=== PATIENT | male | born 1955 | race African-American/Black ===

== ENCOUNTER 2024-08-01 14:21 | Emergency (ER) | payer OTHER ==
[2024-08-01] MEDS ORDERED: HYDROCODONE/APAP 5/325 MG TAB ONE (15:58)
--- NOTE | 2024-08-01 17:24 | RAD REPORT ---
EXAMINATION: XR LEFT KNEE CLINICAL INDICATION: fall;Pain TECHNIQUE: Multiple projections of the left knee were obtained. COMPARISON: No prior exam. FINDINGS: Significant lateral joint compartment space narrowing is seen. There is a large amount of s oft tissue swelling anterior to the patella. A small suprapatellar joint effusion is present. No acute fracture evident.
--- NOTE | 2024-08-01 17:37 | ER ---
Nurse's Notes [facility] Name: Navdeep Voss Age: 68 yrs Sex: Male : 1955 Arrival Date: 08/01/2024 Time: 14:21 Bed 9 Private MD: Diagnosis: Fall on same level, unspecified;Effusion, left knee;Elevated blood-pressure reading, without diagnosis of hypertension Presentation: 08/01 15:13 Chief complaint: Patient states: left knee pain and swelling s/p fall 10 days ago. iw Coronavirus screen: At this time, the client does not indicate any symptoms associated with coronavirus-19. Ebola Screen: No symptoms or risks identified at this time. Risk Assessment: Do you want to hurt yourself or someone else? Patient reports no desire to harm self or others. 15:13 Method Of Arrival: Wheelchair iw 15:13 Initial Sepsis Screen: Does the patient meet any 2 criteria? No. Patient's initial iw sepsis screen is negative. Does the patient have a suspected source of infection? No. Patient's initial sepsis screen is negative. 15:13 Onset of symptoms was July 22, 2024. iw 15:13 Acuity: CHANI 4 iw Historical: - Allergies: 15:14 No Known Allergies; iw - Home Meds: 15:14 None [Active]; iw - PMHx: 15:14 None; iw - PSHx: 15:14 None; iw - Immunization history:: Adult Immunizations not up to date. - Infectious Disease History:: Denies. - Social history:: Smoking status: Patient denies any tobacco usage or history of. Screenin:[address] [facility] ED Fall Risk Assessment (Adult) History of falling in the last 3 months, jb4 including since admission No falls in past 3 months (0 pts) Confusion or Disorientation No (0 pts) Intoxicated or Sedated No (0 pts) Impaired Gait No (0 pts) Mobility Assist Device Used No (0 pt) Altered Elimination No (0 pt) Score/Fall Risk Level 0 - 2 = Low Risk Oriented to surroundings, Maintained a safe environment. Abuse screen: Denies threats or abuse. Nutritional screening: No deficits noted. Tuberculosis screening: No symptoms or risk factors identified. Assessment: 16:10 General: Appears in no apparent distress. comfortable, Behavior is calm, cooperative, jb4 appropriate for age. Pain: Complains of pain in left knee. Neuro: Level of Consciousness is awake, alert, obeys commands, Oriented to person, place, time, situation. Cardiovascular: Patient's skin is warm and dry. Respiratory: Airway is patent Respiratory effort is even, unlabored, Respiratory pattern is regular, symmetrical. Derm: Skin is intact, Skin is pink, warm \T\ dry. Musculoskeletal: Circulation, motion, and sensation intact. Range of motion: intact in all extremities. 16:54 Reassessment: Patient appears in no apparent distress at this time. Patient and/or jb4 family updated on plan of care and expected duration. Pain level reassessed. Patient is alert, oriented x 3, equal unlabored respirations, skin warm/dry/pink. Vital Signs: 15:13 BP 143 / 85; Pulse 87; Resp 16; Temp 98.1; Pulse Ox 98% on R/A; Weight 104.33 kg; Pain iw 8/10; 15:13 Pain Scale: Adult iw ED Course: 14:26 Patient arrived in ED. cj3 14:45 Shaggy Sparks DO is Attending Physician. ms3 15:14 Triage completed. iw 15:14 Arm band placed on. iw 16:00 Emerson Crowell, CHA is Primary Nurse. jb4 17:04 Knee Left 3 View In Process Unspecified. EDMS 17:35 Earnest Obrien MD is Referral Physician. ms3 18:17 Patient has correct armband on for positive identification. Bed in low position. Call jb4 light in reach. Side rails up X 1. Provided Education on: discharge instructions. 18:17 No provider procedures requiring assistance completed. Patient did not have IV access jb4 during this emergency room visit. Administered Medications: 16:09 Drug: HYDROcodone-acetaminophen PO 5 mg-325 mg 1 tabs PO once Route: PO; jb4 18:16 Follow up: Response: No adverse reaction; Marked relief of symptoms jb4 Medication: 18:17 VIS not applicable for this client. jb4 Outcome: 17:36 Discharge ordered by . ms3 18:17 Discharged to home via wheelchair, with family, jb4 18:17 Condition: stable 18:17 Discharge instructions given to patient, Instructed on discharge instructions, follow up and referral plans. Demonstrated understanding of instructions, follow-up care, 18:18 Patient left the ED. jb4 Signatures: Dispatcher [employer] Kaylee George, RN RN iw Emerson Crowell RN RN jb4 Shaggy Sparks DO DO ms3 Melida Vang cj3 Corrections: (The following items were deleted from the chart) 15:14 15:13 BP 143 / 85; Pulse 87bpm; Resp 16bpm; Pulse Ox 98% RA; Temp 98.1F; iw iw 15:14 15:13 BP 143 / 85; Pulse 87bpm; Resp 16bpm; Pulse Ox 98% RA; Temp 98.1F; Pain 8/10, iw Adult; iw
--- NOTE | 2024-08-01 17:37 | EDPHYS ---
Physician Documentation [facility] Name: Navdeep Voss Age: 68 yrs Sex: Male : 1955 Arrival Date: 08/01/2024 Time: 14:21 Bed 9 Private MD: ED Physician Shaggy Sparks HPI: 08/01 15:13 This 68 yrs old Black Male presents to ER via Unassigned with complaints of Knee ms3 Injury, Fall Injury. 15:13 68-year-old male with no past medical history presents to the emergency department for ms3 left knee pain status post fall 10 days prior to arrival. Patient states the pain was initially a 10/10 and is now an 8/10. Patient notes the pain is worse with walking. He denies striking his head or loss of consciousness.. Historical: - Allergies: 15:14 No Known Allergies; iw - Home Meds: 15:14 None [Active]; iw - PMHx: 15:14 None; iw - PSHx: 15:14 None; iw - Immunization history:: Adult Immunizations not up to date. - Infectious Disease History:: Denies. - Social history:: Smoking status: Patient denies any tobacco usage or history of. ROS: 15:13 Constitutional: Negative for fever, and chills. Cardiovascular: Negative for chest ms3 pain, and palpitations. Respiratory: Negative for shortness of breath, cough, wheezing, and pleuritic chest pain, Abdomen/GI: Negative for abdominal pain, nausea, vomiting, diarrhea, and constipation, 15:13 MS/extremity: Positive for left knee pain, Exam: 15:13 Constitutional: This is a well developed, well nourished patient who is awake, alert, ms3 and in no acute distress. Cardiovascular: Regular rate and rhythm with a normal S1 and S2. No gallops, murmurs, or rubs. Normal PMI, no JVD. No pulse deficits. Respiratory: Lungs have equal breath sounds bilaterally, clear to auscultation and percussion. No rales, rhonchi or wheezes noted. No increased work of breathing, no retractions or nasal flaring. Abdomen/GI: Soft, non-tender, with normal bowel sounds. No distension or tympany. No guarding or rebound. No evidence of tenderness throughout. Skin: Warm, dry with normal turgor. Normal color with no rashes, no lesions, and no evidence of cellulitis. 15:13 Musculoskeletal/extremity: Joints: the left knee displays effusion, pain at rest, painful range of motion, swelling, tenderness, Vital Signs: 15:13 BP 143 / 85; Pulse 87; Resp 16; Temp 98.1; Pulse Ox 98% on R/A; Weight 104.33 kg; Pain iw 8/10; 15:13 Pain Scale: Adult iw MDM: 15:12 Medical Screening Exam initiated ms3 15:13 Differential diagnosis: contusion, fracture, sprain, strain. ms3 17:36 Data reviewed: vital signs, nurses notes, radiologic studies, plain films, and as a ms3 result, I will discharge patient. I considered the following discharge prescriptions or medication management in the emergency department Medications were administered in the Emergency Department. See MAR. Independent interpretation of the following test(s) in the Emergency Department X-Ray: My interpretation is Left Knee x-ray images reviewed by me reveals effusion. No fracture. Counseling: I had a detailed discussion with the patient and/or guardian regarding the historical points, exam findings, and any diagnostic results supporting the discharge/admit diagnosis, radiology results, the need for outpatient follow up, to return to the emergency department if symptoms worsen or persist or if there are any questions or concerns that arise at home. Special discussion: I discussed with the patient/guardian in detail that at this point there is no indication for admission to the hospital. It is understood, however, that if the symptoms persist or worsen the patient needs to return immediately for re-evaluation. ED course: Discussed x-ray result findings with patient. Patient to follow-up with Dr. Obrien in 2 to 3 days. Patient understands and agrees with plan. Patient placed in knee immobilizer. Patient offered crutches and states he has crutches at home for use. Return precautions discussed include worsening symptoms, or any other concerns. On reevaluation patient's pain improved, patient is alert and orient x 4, no apparent distress, nontoxic-appearing, speaking full sentences, no signs of compartment syndrome present.. 08/01 17:04 Order name: Knee Left 3 View; Complete Time: 17:35 EDMS 08/01 17:23 Order name: Knee Immobilizer; Complete Time: 18:16 ms3 Administered Medications: 16:09 Drug: HYDROcodone-acetaminophen PO 5 mg-325 mg 1 tabs PO once Route: PO; jb4 18:16 Follow up: Response: No adverse reaction; Marked relief of symptoms jb4 Disposition Summary: 08/01/24 17:36 Discharge Ordered Notes: Location: Home ms3 Condition: Stable ms3 Diagnosis - Fall on same level, unspecified ms3 - Effusion, left knee ms3 - Elevated blood-pressure reading, without diagnosis of hypertension ms3 Followup: ms3 - With: Earnest Obrien MD - When: 2 - 3 days - Reason: Recheck today's complaints Discharge Instructions: - Discharge Summary Sheet ms3 - Crutch Use, Adult ms3 - Knee Effusion ms3 Forms: - Medication Reconciliation Form ms3 - Antibiotic Education ms3 - Prescription Opioid Use ms3 - Patient Portal Instructions ms3 - Leadership Thank You Letter ms3 Signatures: Dispatcher [employer] Kaylee George, RN CHA iw Emerson Crowell RN RN jb4 Shaggy Sparks DO DO ms3 Corrections: (The following items were deleted from the chart) 17:04 15:13 Knee Right 3 View+[email or web address] ordered. EDMS EDMS 17:36 17:23 Crutches ordered. ms3 ms3
[2024-08-01 23:22] VITALS: BP 143/85; TEMP 98.1; O2SAT 98
== END 2024-08-01 18:18 | disposition home or self-care (01) ==
LOC: ER 14:21
DX: M25.462 Effusion, left knee (principal); W18.30XA Fall on same level, unspecified, initial encounter; R03.0 Elevated blood-pressure reading, without diagnosis of hypertension
CPT/HCPCS: 99283